=== PATIENT | female | born 1975 | race Hispanic/Latino ===

== ENCOUNTER 2019-11-14 18:46 | Emergency (ER) | payer BC ==
[~2019-11-14] VITALS: Ht 160 cm; Wt 86.2 kg
[~2019-11-14 18:46] MED LIST: CEFDINIR300 MG PO; PREDNISONE20 MG PO; TESSALON PERLE100 MG PO
[2019-11-14] MEDS ORDERED: ALBUTEROL SULF 0.083% NEB SOLN 3 ML NEB NEB STA (19:07)
[2019-11-14] MEDS ORDERED: IPRATROPIUM BROMIDE 0.02% 2.5 ML NEB NEB STA (19:07)
[2019-11-14] MEDS ORDERED: ACETAMINOPHEN/CODEINE ELIX 120-12 MG/5 ML UDC NG ONE (19:15)
--- NOTE | 2019-11-14 19:56 | Diagnostic Imaging Report ---
Examination: PA and lateral view of the chest. COMPARISON: None. INDICATION: DISCUSSION: Lines/tubes: None. Lungs: The lungs are well inflated and clear. No pneumonia or pulmonary edema. Pleura: No pleural effusion or pneumothorax. Heart and mediastinum: The heart and the mediastinum are unremarkable. Bones and soft tissues: No acute bony abnormalities. IMPRESSION: 1. No acute cardiopulmonary abnormalities. Signed by: Dr. Gorge Woods M.D. on 11/14/2019 7:52 PM
[2019-11-14 21:52] VITALS: BP 110/79
== END 2019-11-14 21:50 | disposition home or self-care (01) ==
LOC: ER 18:46
DX: R05 Cough (principal); J20.9 Acute bronchitis, unspecified
CPT/HCPCS: 71046; 99283

== ENCOUNTER → 2021-06-11 | Outpatient (CLI) | payer BC | LOC: MAMMO 15:11 | PROVIDERS: ATTEND Obstetrics & Gynecology | DX: Z12.31 Encounter for screening mammogram for malignant neoplasm of breast (principal) | CPT/HCPCS: 77067 ==

== ENCOUNTER → 2022-06-13 | Outpatient (CLI) | payer BC | LOC: MAMMO 15:23 | PROVIDERS: ATTEND Obstetrics & Gynecology | DX: Z12.31 Encounter for screening mammogram for malignant neoplasm of breast (principal) | CPT/HCPCS: 77067 ==